=== PATIENT | male | born 1970 | race African-American/Black ===

== ENCOUNTER 2019-03-16 12:40 | Emergency (ER) | payer MEDICAID, OTHER ==
[~2019-03-16] VITALS: Ht 180.3 cm; Wt 70.3 kg
[2019-03-16 13:30] VITALS: BP 171/110
[2019-03-16] MEDS ORDERED: ACETAMINOPHEN 325 MG TAB PO ONE (13:45)
== END 2019-03-16 15:30 | disposition left against medical advice (07) ==
LOC: ER 12:40
DX: M54.9 Dorsalgia, unspecified (principal); R05 Cough; Z53.21 Procedure and treatment not carried out due to patient leaving prior to being seen by health care provider